=== PATIENT | male | born 1980 | race American Indian/Alaskan Native ===

== ENCOUNTER 2017-08-06 09:14 | Outpatient (CLI) | payer OTHER ==
--- NOTE | 2017-08-06 16:48 | XRay Report ---
FINAL REPORT EXAM: XR SPINE THORACIC 2V HISTORY: THORACIC BACK PAIN SCOLIOSIS TECHNIQUE: Three views thoracic spine Comparison: None FINDINGS: There is 60 degree dextroscoliosis thoracolumbar spine, apex at T7. There is no significant rotatory component. There are no compression fractures identified. There is no hemivertebra identified. The imaged lungs are clear. IMPRESSION: 60 degree dextroscoliosis thoracolumbar spine, apex at T7. No significant rotatory component.
--- NOTE | 2017-08-06 16:49 | XRay Report ---
FINAL REPORT EXAM: XR SPINE CERVICAL 2-3V HISTORY: NECK PAIN TECHNIQUE: Five views cervical spine Comparison: None FINDINGS: Normal cervical lordosis. Cervicothoracic junction is intact. C1 lateral masses align normally on C2. The odontoid is mostly obscured by the occiput. AP image is unremarkable. IMPRESSION: Normal alignment cervical vertebral bodies. Odontoid is obscured.
== END 2017-08-06 09:15 | disposition home or self-care (01) ==
LOC: SPVIMAG 09:14
PROVIDERS: ATTEND Physical Medicine & Rehabilitation
DX: M41.85 Other forms of scoliosis, thoracolumbar region (principal)
CPT/HCPCS: 72040; 72070